=== PATIENT | male | born 1960 | race Caucasian/White ===

== ENCOUNTER 2024-10-28 09:08 | Inpatient (IN) | payer OTHER ==
[~2024-10-28] VITALS: Ht 175.3 cm; Wt 55.3 kg
[~2024-10-28 09:08] MED LIST: LIDOCAINE PO; MULTI-VITAMIN1 EACH PO
[2024-10-28] MEDS ORDERED: LIDOCAINE HCL 2% LOCAL INJ 5 ML SDV VIAL INJ ONE (10:53)
[2024-10-28] MEDS ORDERED: FENTANYL CITRATE/PF 100MCG/2 ML INJ ONE (10:53)
[2024-10-28] MEDS ORDERED: PROPOFOL IV EMULSION 10 MG/ML 20 ML VIAL ONE (10:53)
[2024-10-28] MEDS ORDERED: ROCURONIUM BROMIDE 1 ML IV ONE (11:10)
[2024-10-28] MEDS ORDERED: ONDANSETRON HCL INJ 2MG/ML 2ML 2 MG/ML VIAL ONE (11:10)
[2024-10-28] MEDS ORDERED: SUCCINYLCHOLINE CHLORIDE 20 MG/ML 10ML VIAL ONE (11:10)
[2024-10-28] MEDS ORDERED: SUGAMMADEX SODIUM 200 MG/2 ML VIAL IV ONE (11:21)
[2024-10-28] MEDS: D5.45%NS/KCL 20MEQ 1,000 ML IV SCH (14:15)
[2024-10-28 15:15] VITALS: BP 122/80; PULSE 87; RESP 18; O2SAT 100
[2024-10-28 16:35] VITALS: BP 115/63; PULSE 69; RESP 19; TEMP 98.1; O2SAT 98
[2024-10-28 20:00] VITALS: BP 124/67; PULSE 69; RESP 20; TEMP 98.7; O2SAT 98
[2024-10-28 20:47] LABS: BASOPHILS % 0.1 % (0.0-1.0); HEMATOCRIT 36.5 % (38.2-49.6); HEMOGLOBIN 12.2 g/dL (14.0-18.0); LYMPHOCYTES # (AUTO) 0.8 (1.0-3.2); MEAN CORPUSCULAR HEMOGLOBIN 29.4 pg (28-32); MEAN CORPUSCULAR HGB CONC 33.4 g/dL (31-35); MONOCYTES # (AUTO) 0.6 (0.2-0.8); MONOCYTES % 6.3 % (4.4-11.3); NEUTROPHILS # (AUTO) 7.4 (2.1-6.9); PLATELET COUNT 356 x10e3/uL (140-360); RED BLOOD COUNT 4.15 x10e6/uL (4.3-5.7); RED CELL DISTRIBUTION WIDTH 13.6 % (11.7-14.4); WHITE BLOOD COUNT 8.82 x10e3/uL (4.8-10.8)
[2024-10-28] MEDS: LACTATED RINGER'S 1,000 ML ONE (21:00)
[2024-10-28 21:06] LABS: INR 0.94; PROTHROMBIN TIME 13.2 seconds (11.9-14.5)
[2024-10-28 21:07] LABS: PARTIAL THROMBOPLASTIN TIME 34.2 seconds (23.8-35.5)
[2024-10-28 21:16] LABS: ALBUMIN 3.1 g/dL (3.5-5.0); ANION GAP 14.3 mmol/L (8-16); BILIRUBIN,TOTAL 0.3 mg/dL (0.2-1.2); CALCIUM 8.8 mg/dL (8.4-10.2); CREATININE, SERUM 0.76 mg/dL (0.72-1.25); POTASSIUM 4.3 mmol/L (3.5-5.1); TOTAL PROTEIN 6.1 g/dL (6.5-8.1)
[2024-10-28 23:38] VITALS: BP 124/67; PULSE 69; RESP 20; TEMP 98.7; O2SAT 98
[2024-10-29] VITALS (7 sets, daily range): BP systolic 112–128; BP diastolic 57–67; PULSE 56–73; RESP 17–20; TEMP 97.6–98.9; O2SAT 98–100
[2024-10-29] MEDS ORDERED: IOPAMIDOL 370 MG/ML 100 ML INFUS..BTL INJ ONE (06:20)
[2024-10-29] MEDS: CHLORASEPTIC SPRAY 177 ML BTL MM PRN (23:00)
[2024-10-30 04:52] VITALS: BP 131/94; PULSE 79; RESP 18; TEMP 98; O2SAT 94
[2024-10-30 08:00] VITALS: BP 108/66; PULSE 97; RESP 16; TEMP 97.8; O2SAT 99
[2024-10-30 12:17] VITALS: BP 107/58; PULSE 70; RESP 19; TEMP 98.9; O2SAT 100
[2024-10-30] MEDS ORDERED: DEXAMETHASONE SOD PHOS INJ 4 MG/ML SDV ONE (12:51)
[2024-10-30] MEDS ORDERED: SODIUM CHLORIDE 0.9% 100 ML ONE (12:57)
[2024-10-30] MEDS ORDERED: FENTANYL CITRATE/PF 100MCG/2 ML INJ ONE (12:57)
[2024-10-30] MEDS ORDERED: PROPOFOL IV EMULSION 10 MG/ML 20 ML VIAL ONE (12:57)
[2024-10-30] MEDS ORDERED: LIDOCAINE HCL 2% LOCAL INJ 5 ML SDV VIAL INJ ONE (12:57)
[2024-10-30] MEDS ORDERED: ROCURONIUM BROMIDE 1 ML IV ONE (12:57)
[2024-10-30] MEDS ORDERED: ACETAMINOPHEN 1000 MG/100 ML 100 ML IV ONE (12:58)
[2024-10-30] MEDS ORDERED: SEVOFLURANE INHAL SOLN 250 ML PEN BTL ONE (12:58)
[2024-10-30] MEDS ORDERED: PHENYLEPHRINE HCL 1% 10 MG/ML VIAL ONE (13:03)
[2024-10-30] MEDS ORDERED: SUGAMMADEX SODIUM 200 MG/2 ML VIAL IV ONE (13:30)
[2024-10-30] MEDS ORDERED: HYDROMORPHONE 1MG/1ML INJ IV PRN (14:15)
[2024-10-30 16:09] VITALS: BP 153/75; PULSE 58; RESP 19; TEMP 98.2; O2SAT 96
[2024-10-30 19:44] VITALS: BP 153/75; PULSE 58; RESP 19; TEMP 98.2; O2SAT 96
[2024-10-30 20:00] VITALS: BP 101/88; PULSE 76; RESP 16; TEMP 97.3; O2SAT 99
[2024-10-31] VITALS (7 sets, daily range): BP systolic 130–157; BP diastolic 71–86; PULSE 62–73; RESP 16–19; TEMP 97.7–98.7; O2SAT 97–99
[2024-10-31] MEDS: ACETAMINOPHEN 1000 MG/100 ML IV PRN (05:39)
[2024-10-31 06:09] LABS: BASOPHILS % 0.2 % (0.0-1.0); EOSINOPHILS % 0.1 % (0.0-6.0); HEMATOCRIT 41.5 % (38.2-49.6); LYMPHOCYTES # (AUTO) 1.2 (1.0-3.2); LYMPHOCYTES % 10.3 % (18.0-39.1); MEAN CORPUSCULAR HEMOGLOBIN 29.4 pg (28-32); MEAN CORPUSCULAR HGB CONC 33.7 g/dL (31-35); MEAN CORPUSCULAR VOLUME 87.2 fL (81-99); MONOCYTES # (AUTO) 1.2 (0.2-0.8); MONOCYTES % 10.4 % (4.4-11.3); NEUTROPHILS % 78.5 % (38.7-80.0); PLATELET COUNT 400 x10e3/uL (140-360); RED BLOOD COUNT 4.76 x10e6/uL (4.3-5.7); RED CELL DISTRIBUTION WIDTH 13.6 % (11.7-14.4)
[2024-10-31 06:24] LABS: ANION GAP 14.6 mmol/L (8-16); CALCIUM 9.4 mg/dL (8.4-10.2); CREATININE, SERUM 0.8 mg/dL (0.72-1.25); POTASSIUM 4.6 mmol/L (3.5-5.1)
[2024-10-31] MEDS: FENTANYL CITRATE/PF 100MCG/2 ML INJ ONE (12:29)
[2024-10-31] MEDS: HYDROMORPHONE 2MG/ML IV PRN (17:29)
[2024-11-01] VITALS (7 sets, daily range): BP systolic 118–141; BP diastolic 49–97; PULSE 57–87; RESP 18; TEMP 97.4–98.6; O2SAT 90–98
[2024-11-01] MEDS ORDERED: HYDROMORPHONE 1MG/1ML INJ IV PRN (12:30)
[2024-11-01] MEDS: HYDROMORPHONE 2MG/ML IV PRN (15:01)
[2024-11-02] VITALS: BP 135/75; PULSE 73; RESP 20; TEMP 98.3; O2SAT 95
[2024-11-02 07:40] VITALS: BP 109/82; PULSE 69; RESP 14; TEMP 98.3; O2SAT 96
[2024-11-02 09:15] VITALS: BP 109/82; PULSE 69; RESP 20; TEMP 98.3; O2SAT 95
[2024-11-02 16:57] VITALS: BP 136/65; PULSE 86; RESP 19; TEMP 98.4; O2SAT 98
[2024-11-02 20:00] VITALS: BP 158/82; PULSE 93; RESP 18; TEMP 100.6; O2SAT 94
[2024-11-03] VITALS: BP 124/79; PULSE 80; RESP 18; TEMP 98.6; O2SAT 96
[2024-11-03 04:00] VITALS: BP 144/66; PULSE 87; RESP 18; TEMP 99; O2SAT 95
[2024-11-03 08:00] VITALS: BP 144/66; PULSE 87; RESP 18; TEMP 99; O2SAT 95
[2024-11-03 08:05] VITALS: BP 126/72; PULSE 84; RESP 18; TEMP 98.1; O2SAT 95
[2024-11-03 11:48] VITALS: BP 116/61; PULSE 83; RESP 19; TEMP 97.4; O2SAT 95
[2024-11-03 16:28] VITALS: BP 131/74; PULSE 76; RESP 19; TEMP 98.4; O2SAT 95
== END 2024-11-03 16:15 | disposition home or self-care (01) | DRG 357 ==
LOC: OR 09:08 → MERGE 12:08 → PACU V 12:08 → UNMERGE 12:08 → MED/SURG2 14:01
PROVIDERS: ADMIT Internal Medicine Gastroenterology; ATTEND Internal Medicine Gastroenterology
PROC: 0DB18ZX Excision of Upper Esophagus, Via Natural or Artificial Opening Endoscopic, Diagnostic (ICD-10-PCS; 2024-10-28)
PROC: 0WJG0ZZ Inspection of Peritoneal Cavity, Open Approach (ICD-10-PCS; 2024-10-30)
PROC: 0DH60UZ Insertion of Feeding Device into Stomach, Open Approach (ICD-10-PCS; principal; 2024-10-30 12:39)
DX: C15.9 Malignant neoplasm of esophagus, unspecified (principal); E46 Unspecified protein-calorie malnutrition; Z68.1 Body mass index [BMI] 19.9 or less, adult; R13.10 Dysphagia, unspecified
CPT/HCPCS: 36415; 43235; 43246; 71260; 74160; 74230; 80048; 80053; 85025; 85610; 85730; 93005; J0330; J0694; J1100; J1171; J2003; J2371; J2405; J2470; J7050; Q9967